=== PATIENT | male | born 1945 | race Caucasian/White ===

== ENCOUNTER 2022-04-11 07:51 | Inpatient (IN) | payer OTHER ==
[2022-04-11] MEDS: SODIUM CHLORIDE 1,000 ML IV SCH (09:00)
[2022-04-11 09:38] LABS: VENOUS BASE EXCESS 0.2 mmol/L (-2-2); VENOUS PCO2 40.8 mmHg (38-52); VENOUS PH 7.404 (7.310-7.410)
[2022-04-11 09:40] LABS: INR 1.24 (0.83-1.09); PROTHROMBIN TIME (PATIENT) 14.3 SEC (9.7-13.0)
[2022-04-11 09:42] LABS: HEMATOCRIT 43.7 % (35.4-49); HEMOGLOBIN 13.9 GM/dL (11.7-16.9); MCH 31.1 pg (25.7-33.7); MCHC 31.8 g/dl (32.0-35.9); MEAN CELL VOLUME 97.5 fl (80-96); MEAN PLT VOLUME 8.8 fl (7.5-11.1); PLATELET COUNT 204 10^3/uL (134-434); RBC 4.48 M/mm3 (4.00-5.60); RDW 22.2 % (11.9-15.9); WHITE BLOOD COUNT 6.7 K/mm3 (4.0-10.0)
[2022-04-11 09:43] LABS: ACTIVATED PTT 32.9 SECONDS (25.2-36.5)
[2022-04-11 09:52] LABS: CALCIUM 8.3 mg/dL (8.5-10.1)
[2022-04-11 09:53] LABS: ALBUMIN 3.6 g/dl (3.4-5.0)
[2022-04-11 09:54] LABS: BLOOD UREA NITROGEN 14.5 mg/dL (7-18)
[2022-04-11 09:56] LABS: CREATININE 1.1 mg/dL (0.55-1.3)
[2022-04-11 09:57] LABS: TOT PROT 6.4 g/dl (6.4-8.2)
[2022-04-11 09:59] LABS: BILIRUBIN,TOTAL 0.7 mg/dL (0.2-1)
[2022-04-11] MEDS ORDERED: ACETAMINOPHEN 1000 MG/100 ML BAG IVPB ONE (10:00)
[2022-04-11 10:06] LABS: LACTIC ACID 2.4 mmol/L (0.4-2.0)
[2022-04-11 10:17] LABS: ANISOCYTOSIS 2+; MACROCYTOSIS 0
[2022-04-11] MEDS ORDERED: SODIUM CHLORIDE 1,000 ML IV STA (11:04)
[2022-04-11] MEDS ORDERED: ACETAMINOPHEN 325 MG TABLET (FP) PO PRN (15:54)
[2022-04-11 16:19] LABS: BF GLUCOSE (CSF ONLY) 71 mg/dL (40-70)
[2022-04-11 16:25] LABS: URINE APPEARANCE CLEAR; URINE BILIRUBIN NEGATIVE (NEGATIVE); URINE COLOR YELLOW; URINE GLUCOSE (UA) NEGATIVE (NEGATIVE)
[2022-04-11 16:26] LABS: URINE KETONE 15 mg/dl (NEGATIVE); URINE LEUK ESTERASE NEGATIVE (NEGATIVE); URINE NITRITE NEGATIVE (NEGATIVE); URINE PROTEIN 1+ (NEGATIVE); URINE UROBILINOGEN 0.2 mg/dL (0.2-1.0)
[2022-04-11 16:28] LABS: CSF COLOR COLORLESS (COLORLESS)
[2022-04-11 16:29] LABS: CSF APPEARANCE CLEAR (CLEAR); CSF WBC 0 mm3 (0-5)
[2022-04-11] MEDS ORDERED: OSELTAMIVIR PHOSPHATE 75 MG CAPSULE PO ONE (19:15)
[2022-04-11] MEDS ORDERED: OSELTAMIVIR PHOSPHATE 75 MG CAPSULE PO SCH (22:00)
[2022-04-12] MEDS: SODIUM CHLORIDE 1,000 ML IV SCH ×2 (05:19→11:36)
[2022-04-12 08:16] VITALS: BMI 21.4
[2022-04-12 09:10] LABS: BASO % 0.5 % (0-2.0); HEMATOCRIT 40.8 % (35.4-49); HEMOGLOBIN 13.7 GM/dL (11.7-16.9); LYMPH % 6.5 % (8-40); MCH 31.4 pg (25.7-33.7); MCHC 33.5 g/dl (32.0-35.9); MEAN CELL VOLUME 93.8 fl (80-96); MEAN PLT VOLUME 8.8 fl (7.5-11.1); MONO % 8.4 % (3.8-10.2); NEUT % 84.6 % (42.8-82.8); PLATELET COUNT 192 10^3/uL (134-434); RBC 4.35 M/mm3 (4.00-5.60); RDW 13.6 % (11.9-15.9)
[2022-04-12 09:32] LABS: CALCIUM 8.4 mg/dL (8.5-10.1)
[2022-04-12 09:33] LABS: ALBUMIN 3.4 g/dl (3.4-5.0); BLOOD UREA NITROGEN 14.2 mg/dL (7-18)
[2022-04-12 09:36] LABS: CREATININE 0.8 mg/dL (0.55-1.3)
[2022-04-12 09:37] LABS: TOT PROT 6.2 g/dl (6.4-8.2)
[2022-04-12] MEDS ORDERED: OSELTAMIVIR PHOSPHATE 30 MG CAPSULE PO SCH (10:00)
[2022-04-12] MEDS: ENOXAPARIN NA (PORCINE) 40 MG/0.4 ML DISP.SYRIN SQ SCH (11:30)
[2022-04-12] MEDS: OSELTAMIVIR PHOSPHATE 75 MG CAPSULE PO SCH ×2 (11:31→21:14)
[2022-04-12] MEDS: ATORVASTATIN CA 20 MG TABLET (FP) PO SCH (21:14)
[2022-04-12] MEDS: TAMSULOSIN HCL 0.4 MG CAP PO SCH (21:14)
[2022-04-12] MEDS ORDERED: TAMSULOSIN HCL 0.4 MG CAP PO SCH (22:00)
[2022-04-13] MEDS ORDERED: SODIUM CHLORIDE 1,000 ML IV SCH (09:07)
[2022-04-13 09:27] LABS: BASO % 0.7 % (0-2.0); EOS % 0.6 % (0-4.5); HEMATOCRIT 42.3 % (35.4-49); HEMOGLOBIN 14.3 GM/dL (11.7-16.9); LYMPH % 22.3 % (8-40); MCH 31.7 pg (25.7-33.7); MCHC 33.9 g/dl (32.0-35.9); MEAN CELL VOLUME 93.5 fl (80-96); MEAN PLT VOLUME 8.6 fl (7.5-11.1); MONO % 13.1 % (3.8-10.2); NEUT % 63.3 % (42.8-82.8); PLATELET COUNT 190 10^3/uL (134-434); RBC 4.53 M/mm3 (4.00-5.60); RDW 13.2 % (11.9-15.9); WHITE BLOOD COUNT 3.8 K/mm3 (4.0-10.0)
[2022-04-13] MEDS: OSELTAMIVIR PHOSPHATE 75 MG CAPSULE PO SCH ×2 (09:48→22:28)
[2022-04-13] MEDS: ENOXAPARIN NA (PORCINE) 40 MG/0.4 ML DISP.SYRIN SQ SCH (09:49)
[2022-04-13] MEDS: TAMSULOSIN HCL 0.4 MG CAP PO SCH ×2 (09:49→20:20)
[2022-04-13 09:52] LABS: ALBUMIN 3.6 g/dl (3.4-5.0); BLOOD UREA NITROGEN 15.7 mg/dL (7-18)
[2022-04-13 09:54] LABS: PHOSPHOROUS 2.5 mg/dL (2.5-4.9)
[2022-04-13 09:55] LABS: CREATININE 0.8 mg/dL (0.55-1.3)
[2022-04-13 09:56] LABS: TOT PROT 6.9 g/dl (6.4-8.2)
[2022-04-13] MEDS: ATORVASTATIN CA 20 MG TABLET (FP) PO SCH (22:28)
[2022-04-14] MEDS ORDERED: ACETAMINOPHEN 500 MG TABLET (FP) PO ONE (07:30)
[2022-04-14 08:07] LABS: EOS % 1.5 % (0-4.5); HEMOGLOBIN 12.5 GM/dL (11.7-16.9); LYMPH % 22.6 % (8-40); MCH 31.2 pg (25.7-33.7); MCHC 33.9 g/dl (32.0-35.9); MEAN CELL VOLUME 92.1 fl (80-96); MEAN PLT VOLUME 8.3 fl (7.5-11.1); NEUT % 60.9 % (42.8-82.8); PLATELET COUNT 189 10^3/uL (134-434); RBC 4.01 M/mm3 (4.00-5.60); WHITE BLOOD COUNT 3.8 K/mm3 (4.0-10.0)
[2022-04-14 08:25] LABS: CALCIUM 8.4 mg/dL (8.5-10.1)
[2022-04-14 08:26] LABS: BLOOD UREA NITROGEN 9.9 mg/dL (7-18)
[2022-04-14 08:28] LABS: CREATININE 0.6 mg/dL (0.55-1.3); PHOSPHOROUS 2.9 mg/dL (2.5-4.9)
[2022-04-14 08:30] LABS: BILIRUBIN,TOTAL 0.7 mg/dL (0.2-1); TOT PROT 5.6 g/dl (6.4-8.2)
[2022-04-14] MEDS ORDERED: POTASSIUM CHLORIDE TABS 20 MEQ TABLET.ER (FP) PO ONE (09:15)
[2022-04-14] MEDS: ENOXAPARIN NA (PORCINE) 40 MG/0.4 ML DISP.SYRIN SQ SCH (10:15)
[2022-04-14] MEDS: OSELTAMIVIR PHOSPHATE 75 MG CAPSULE PO SCH ×2 (10:16→22:28)
[2022-04-14] MEDS: TAMSULOSIN HCL 0.4 MG CAP PO SCH ×2 (10:16→20:50)
[2022-04-14] MEDS: LACTATED RINGERS SOLUTION 1,000 ML/1,000 ML INFUS.BAG IV SCH ×2 (10:25→20:49)
[2022-04-14] MEDS: ATORVASTATIN CA 20 MG TABLET (FP) PO SCH (22:04)
[2022-04-15] MEDS: LACTATED RINGERS SOLUTION 1,000 ML/1,000 ML INFUS.BAG IV SCH ×2 (06:24→10:32)
[2022-04-15 09:11] LABS: BASO % 0.7 % (0-2.0); EOS % 1.9 % (0-4.5); HEMATOCRIT 38.5 % (35.4-49); HEMOGLOBIN 13.2 GM/dL (11.7-16.9); LYMPH % 26.5 % (8-40); MCH 31.7 pg (25.7-33.7); MCHC 34.3 g/dl (32.0-35.9); MEAN CELL VOLUME 92.4 fl (80-96); MEAN PLT VOLUME 8.2 fl (7.5-11.1); NEUT % 54.9 % (42.8-82.8); PLATELET COUNT 212 10^3/uL (134-434); RBC 4.17 M/mm3 (4.00-5.60); RDW 13.4 % (11.9-15.9); WHITE BLOOD COUNT 3.6 K/mm3 (4.0-10.0)
[2022-04-15 09:39] LABS: CALCIUM 9.4 mg/dL (8.5-10.1)
[2022-04-15 09:40] LABS: ALBUMIN 3.3 g/dl (3.4-5.0); BLOOD UREA NITROGEN 7.8 mg/dL (7-18); MAGNESIUM 1.8 mg/dL (1.8-2.4)
[2022-04-15 09:41] LABS: PHOSPHOROUS 3.2 mg/dL (2.5-4.9)
[2022-04-15 09:43] LABS: BILIRUBIN,TOTAL 0.7 mg/dL (0.2-1); CREATININE 0.6 mg/dL (0.55-1.3); TOT PROT 6.2 g/dl (6.4-8.2)
[2022-04-15] MEDS: OSELTAMIVIR PHOSPHATE 75 MG CAPSULE PO SCH (10:25)
[2022-04-15] MEDS: ENOXAPARIN NA (PORCINE) 40 MG/0.4 ML DISP.SYRIN SQ SCH (10:25)
[2022-04-15] MEDS ORDERED: LACTATED RINGERS SOLUTION 1,000 ML/1,000 ML INFUS.BAG IV SCH (10:40)
[2022-04-15 12:14] VITALS: RESP 20
[2022-04-15 13:25] VITALS: BP 133/72; PULSE 81; TEMP 98.7
[2022-04-20 17:07] LABS: ALPHA-1-GLOBULIN,CSF 4.9 % (1.1-6.6); ALPHA-2-GLOBULIN,CSF 4.5 % (3.0-12.6); BETA GLOBULIN,CSF 17.1 % (7.3-17.9); GAMMA GLOBULIN,CSF 7.7 % (3.0-13.0); M-SPIKE CSF Not Observed % (Not Observed); PRE-ALBUMIN CSF 2.6 % (2.2-7.1)
== END 2022-04-15 14:30 | disposition home or self-care (01) | DRG 194 ==
LOC: JER 07:51 → JERBED 14:53 → J7W 04-12 05:06
PROVIDERS: ADMIT Internal Medicine; ATTEND Internal Medicine
PROC: 009U3ZZ Drainage of Spinal Canal, Percutaneous Approach (ICD-10-PCS; principal; 2022-04-11)
DX: J10.1 Influenza due to other identified influenza virus with other respiratory manifestations (principal); M62.82 Rhabdomyolysis; E78.5 Hyperlipidemia, unspecified; R91.1 Solitary pulmonary nodule; M48.061 Spinal stenosis, lumbar region without neurogenic claudication; R33.8 Other retention of urine; M47.897 Other spondylosis, lumbosacral region; N40.1 Benign prostatic hyperplasia with lower urinary tract symptoms; R26.89 Other abnormalities of gait and mobility; M43.17 Spondylolisthesis, lumbosacral region; M50.30 Other cervical disc degeneration, unspecified cervical region; M51.36 Other intervertebral disc degeneration, lumbar region
CPT/HCPCS: 0241U-QW; 36415; 70450-TC; 70496-TC; 70498-TC; 70551-TC; 71045-TC-FY; 71250-TC; 72125-TC; 72128-TC; 72131-TC; 72141-TC; 72146-TC; 72148-TC; 80053; 80061; 81003; 82042; 82550; 82553; 82803; 82945; 82962; 83036; 83605; 83615; 83735; 84100; 84157; 84166; 84443; 84484; 85025; 85610; 85651; 85730; 86140; 86592; 86850; 86900; 86901; 87040; 87070; 87086; 87205; 93005; 93010; 97116-GP; 97161-GP; 99291